=== PATIENT | female | born 1985 | race Caucasian/White ===

== ENCOUNTER 2024-10-16 19:41 | Emergency (ER) | payer OTHER ==
--- NOTE | 2024-10-16 20:27 | RAD REPORT ---
Procedure: Chest Single View HISTORY: Chest pain COMPARISON: none FINDINGS: The lungs appear clear of acute infiltrate. No significant pleural effusion noted. The heart is normal size. IMPRESSION: No acute abnormality is displayed.
[2024-10-16 20:36] LABS: Absolute Eosinophils 0.1 K/uL (0-0.5); Absolute Monocytes 0.3 K/uL (0.1-1.3); Absolute Neutrophil 3.6 K/uL (1.8-8.0); Basophils % 0.7 % (0-1.3); Eosinophils % 1.3 % (0-4.4); Hematocrit 35.5 % (36.0-45.0); Hemoglobin 12.1 g/dL (12.0-15.0); Lymphocytes % 33.1 % (15.3-44.8); MCH 31.3 pg (27.0-35.0); MCHC 34.3 g/dL (32.0-36.0); MCV 91.4 fL (80-100); MPV 8.3 fL (7.6-11.3); Monocytes % 4.7 % (3.3-12.3); Neutrophils % 60.2 % (41.7-73.7); Nucleated Red Blood Cells % 0.5 % (0-0); Platelets 259 thou/uL (152-406); RBC Red Blood Cell Count 3.88 M/uL (3.86-4.86); Red Cell Distribution Width 13.3 % (12.1-15.2)
[2024-10-16 20:42] LABS: PT Prothrombin Time 12.2 SECONDS (10.0-13.0); Protime INR 1.07
[2024-10-16 20:56] LABS: ALT/SGPT 28 U/L (13-56); AST/SGOT 13 U/L (15-37); Albumin 3.1 g/dL (3.4-5.0); Alkaline Phosphatase 54 U/L (45-117); Anion Gap 7.7 mEq/L (5.0-15.0); BUN Blood Urea Nitrogen 11 mg/dL (7-18); Bicarbonate 26 mEq/L (21-32); Bilirubin Total 0.2 mg/dL (0.2-1.0); Globulin 3.1 g/dL (2.3-3.5); Glomerular Filtration Rate 121 ml/min (=/>90); Glucose Level 99 mg/dL (74-106); NT PRO-BNP 149 pg/mL (<125); Potassium 3.7 mEq/L (3.5-5.1); Protein, Total 6.2 g/dL (6.4-8.2); Sodium Level 139 mEq/L (136-145); Troponin High Sensitivity 4.9 pg/mL (<58.9)
[2024-10-16 21:03] LABS: Bilirubin Direct < 0.2 mg/dL (0-0.2)
--- NOTE | 2024-10-16 21:08 | ER ---
Nurse's Notes [facility] Name: Brandi Patel Age: 38 yrs Sex: Female : 1985 Arrival Date: 10/16/2024 Time: 19:41 Bed DX1 Private MD: Diagnosis: Chest pain, hypertension Presentation: 10/16 19:47 Chief complaint: Patient states: chest pain X 1 and half weeks , today it started 2-3 iw hours ago , pain is right in middle , non radiating , feels like pressure and feels like anxiety. Coronavirus screen: At this time, the client does not indicate any symptoms associated with coronavirus-19. Ebola Screen: No symptoms or risks identified at this time. Initial Sepsis Screen: Does the patient meet any 2 criteria? No. Patient's initial sepsis screen is negative. Does the patient have a suspected source of infection? No. Patient's initial sepsis screen is negative. Risk Assessment: Do you want to hurt yourself or someone else? Patient reports no desire to harm self or others. Onset of symptoms was October 06, 2024. 19:47 Method Of Arrival: Ambulatory iw 19:47 Acuity: CECILIO 3 iw Historical: - Allergies: 19:48 No Known Allergies; iw - Home Meds: 19:48 metoprolol tartrate 100 mg Oral tablet daily [Active]; iw - PMHx: 19:48 Hypertensive disorder; Anxiety; iw - PSHx: 19:48 section; x3; Ligation of fallopian tube; iw - Immunization history:: Adult Immunizations up to date. - Infectious Disease History:: Denies. - Social history:: Smoking status: Patient denies any tobacco usage or history of. Patient/guardian denies using alcohol, street drugs. Screenin:27 [facility] ED Fall Risk Assessment (Adult) History of falling in the last 3 months, lg3 including since admission No falls in past 3 months (0 pts) Confusion or Disorientation No (0 pts) Intoxicated or Sedated No (0 pts) Impaired Gait No (0 pts) Mobility Assist Device Used No (0 pt) Altered Elimination No (0 pt) Score/Fall Risk Level 0 - 2 = Low Risk Oriented to surroundings, Maintained a safe environment, Educated pt \T\ family on fall prevention, incl call for assistance when getting out of bed, Assessed \T\ reinforced patient's understanding of fall precautions. Abuse screen: Denies threats or abuse. Denies injuries from another. Nutritional screening: No deficits noted. Tuberculosis screening: No symptoms or risk factors identified. Assessment: 20:27 General: Appears in no apparent distress. comfortable, Behavior is calm, cooperative. lg3 Pain: Complains of pain in chest Pain does not radiate. Pain currently is 3 out of 10 on a pain scale. Quality of pain is described as pressure. Neuro: No deficits noted. Weiss Agitation-Sedation Scale (RASS): 0 - Alert and Calm Level of Consciousness is awake, alert, obeys commands, Oriented to person, place, time, situation. Cardiovascular: No deficits noted. Heart tones S1 S2 present Capillary refill < 3 seconds Clubbing of nail beds is absent JVD is absent Patient's skin is warm and dry. Rhythm is sinus rhythm. Respiratory: No deficits noted. Airway is patent Respiratory effort is even, unlabored, Respiratory pattern is regular, symmetrical. GI: No deficits noted. No signs and/or symptoms were reported involving the gastrointestinal system. : No signs and/or symptoms were reported regarding the genitourinary system. EENT: No deficits noted. No signs and/or symptoms were reported regarding the EENT system. Derm: No deficits noted. No signs and/or symptoms reported regarding the dermatologic system. Skin is intact, is healthy with good turgor, Skin is dry, Skin is normal, Skin temperature is warm. Musculoskeletal: No deficits noted. No signs and/or symptoms reported regarding the musculoskeletal system. Circulation, motion, and sensation intact. Range of motion: intact in all extremities. 21:14 Reassessment: Patient appears in no apparent distress at this time. No changes from lg3 previously documented assessment. Patient and/or family updated on plan of care and expected duration. Pain level reassessed. Patient is alert, oriented x 3, equal unlabored respirations, skin warm/dry/pink. Vital Signs: 19:47 BP 142 / 101; Pulse 67; Resp 16; Temp 97.6; Pulse Ox 100% on R/A; Weight 90.72 kg; iw Height 5 ft. 5 in. ; 21:15 BP 134 / 92; Pulse 76; Resp 17 S; Temp 97.3(O); Pulse Ox 100% on R/A; lg3 19:47 Body Mass Index 33.28 (90.72 kg, 165.1 cm) iw ED Course: 19:47 Patient arrived in ED. iw 19:47 Ailyn Adams MD is Attending Physician. sp3 19:48 Triage completed. iw 19:49 Arm band placed on. iw 20:08 EKG done, by ED staff, reviewed by Ailyn Adams MD. iw 20:17 XRAY Chest (1 view) In Process Unspecified. EDMS 20:26 Initial lab(s) drawn, by me, sent to lab. Inserted saline lock: 22 gauge in right lg3 antecubital area, using aseptic technique. Blood collected. Flushed with 10 mL NS. 20:27 Patient has correct armband on for positive identification. Warm blanket given. lg3 20:27 Patient maintains SpO2 saturation greater than 95% on room air. lg3 20:29 Basic Metabolic Panel Sent. lg3 20:29 CBC with Diff Sent. lg3 20:29 LFT's Sent. lg3 20:29 Magnesium Sent. lg3 20:29 NT PRO-BNP Sent. lg3 20:29 PT-INR Sent. lg3 20:29 Troponin HS Sent. lg3 21:15 No provider procedures requiring assistance completed. IV discontinued, intact, lg3 bleeding controlled, No redness/swelling at site. Pressure dressing applied. Administered Medications: No medications were administered Medication: 20:27 VIS not applicable for this client. lg3 Outcome: 21:08 Discharge ordered by . sp3 21:15 Discharged to home ambulatory, lg3 21:15 Condition: stable 21:15 Discharge instructions given to patient, Instructed on discharge instructions, follow up and referral plans. Demonstrated understanding of instructions, follow-up care, 21:16 Patient left the ED. lg3 Signatures: Dispatcher [employer] EDMS Ronel Rhodes, RN RN iw Audrey Ram RN RN lg3 Ailyn Adams MD MD sp3 Corrections: (The following items were deleted from the chart) 19:49 19:47 BP 142 / 101; Pulse 67bpm; Resp 16bpm; Pulse Ox 100% RA; Temp 97.6F; iw iw
--- NOTE | 2024-10-16 21:08 | EDPHYS ---
Physician Documentation [facility] Name: Brandi Patel Age: 38 yrs Sex: Female : 1985 Arrival Date: 10/16/2024 Time: 19:41 Bed DX1 Private MD: ED Physician Ailyn Adams HPI: 10/16 20:37 This 38 yrs old Female presents to ER via Ambulatory with complaints of High Blood sp3 Pressure, Chest Pain. 20:37 38-year-old female with history of hypertension, anxiety presents to the ED with chief sp3 complaint chest pain off and on for the last 3 to 4 hours. She also states she has not been compliant with her blood pressure medication. She really only wanted an EKG and blood pressure performed however she did mention chest pain. She denies any headache, shortness of breath, back pain, abdominal pain, vomit, diarrhea, syncope, near syncope, rash, bleeding, or any other signs or symptoms on ROS at this time. Chest pain is currently resolved. She does feel anxious.. Historical: - Allergies: 19:48 No Known Allergies; iw - Home Meds: 19:48 metoprolol tartrate 100 mg Oral tablet daily [Active]; iw - PMHx: 19:48 Hypertensive disorder; Anxiety; iw - PSHx: 19:48 section; x3; Ligation of fallopian tube; iw - Immunization history:: Adult Immunizations up to date. - Infectious Disease History:: Denies. - Social history:: Smoking status: Patient denies any tobacco usage or history of. Patient/guardian denies using alcohol, street drugs. ROS: 20:38 Constitutional: Negative for fever, chills, and weight loss, Eyes: Negative for injury, sp3 pain, redness, and discharge, ENT: Negative for injury, pain, and discharge, Neck: Negative for injury, pain, and swelling, Respiratory: Negative for shortness of breath, cough, wheezing, and pleuritic chest pain, Abdomen/GI: Negative for abdominal pain, nausea, vomiting, diarrhea, and constipation, Back: Negative for injury and pain, MS/Extremity: Negative for injury and deformity, Skin: Negative for injury, rash, and discoloration, Neuro: Negative for headache, weakness, numbness, tingling, and seizure, Psych: Negative for depression, anxiety, suicide ideation, homicidal ideation, and hallucinations, Allergy/Immunology: Negative for hives, rash, and allergies, Endocrine: Negative for neck swelling, polydipsia, polyuria, polyphagia, and marked weight changes, Hematologic/Lymphatic: Negative for swollen nodes, abnormal bleeding, and unusual bruising, 20:38 All other systems are negative, Exam: 20:38 Constitutional: This is a well developed, well nourished patient who is awake, alert, sp3 and in no acute distress. Head/Face: Normocephalic, atraumatic. Eyes: Pupils equal round and reactive to light, extra-ocular motions intact. Lids and lashes normal. Conjunctiva and sclera are non-icteric and not injected. Cornea within normal limits. Periorbital areas with no swelling, redness, or edema. Neck: Trachea midline, no thyromegaly or masses palpated, and no cervical lymphadenopathy. Supple, full range of motion without nuchal rigidity, or vertebral point tenderness. No Meningismus. Chest/axilla: Normal chest wall appearance and motion. Nontender with no deformity. No lesions are appreciated. Cardiovascular: Regular rate and rhythm with a normal S1 and S2. No gallops, murmurs, or rubs. Normal PMI, no JVD. No pulse deficits. Respiratory: Lungs have equal breath sounds bilaterally, clear to auscultation and percussion. No rales, rhonchi or wheezes noted. No increased work of breathing, no retractions or nasal flaring. Abdomen/GI: Soft, non-tender, with normal bowel sounds. No distension or tympany. No guarding or rebound. No evidence of tenderness throughout. Back: No spinal tenderness. No costovertebral tenderness. Full range of motion. Skin: Warm, dry with normal turgor. Normal color with no rashes, no lesions, and no evidence of cellulitis. MS/ Extremity: Pulses equal, no cyanosis. Neurovascular intact. Full, normal range of motion. Neuro: Awake and alert, GCS 15, oriented to person, place, time, and situation. Cranial nerves II-XII grossly intact. Motor strength 5/5 in all extremities. Sensory grossly intact. Cerebellar exam normal. Normal gait. Psych: Awake, alert, with orientation to person, place and time. Behavior, mood, and affect are within normal limits. 20:38 ECG was reviewed by the Attending Physician. EKG demonstrates normal sinus rhythm at 62 bpm with normal intervals, normal QRS, normal axis, normal ST/T-segment's without evidence of acute ischemia. Vital Signs: 19:47 BP 142 / 101; Pulse 67; Resp 16; Temp 97.6; Pulse Ox 100% on R/A; Weight 90.72 kg; iw Height 5 ft. 5 in. ; 21:15 BP 134 / 92; Pulse 76; Resp 17 S; Temp 97.3(O); Pulse Ox 100% on R/A; lg3 19:47 Body Mass Index 33.28 (90.72 kg, 165.1 cm) iw MDM: 19:55 Medical Screening Exam initiated sp3 20:38 Data reviewed: vital signs, nurses notes, lab test result(s), EKG, radiologic studies. sp3 ED course: 38-year-old female with hypertension and now resolved chest pain. I have convinced the patient to get at least 1 set of blood work prior to being discharged. She is in a hurry to get home due to her employment. Differential diagnosis includes muscle skeletal pain, anxiety, acute coronary syndrome, pleurisy, other pulmonary pathology, among others. I am not highly suspicious of PE, TAD, sepsis, shock and I ruled all of those out clinically. EKG is normal. Chest x-ray is also normal. Blood work pending. If negative I will offer 1 more set of blood work at 2 hours for second troponin however patient will likely decline due to her wanting to leave. Will perform informed discharge and discharge accordingly.. 21:08 ED course: Initial workup negative. Patient still wants to be discharged. We will sp3 safely let her go home at this time.. 10/16 20:00 Order name: Basic Metabolic Panel; Complete Time: 21:07 3 10/16 20:00 Order name: CBC with Diff; Complete Time: 21: 3 10/16 20:00 Order name: LFT's; Complete Time: 21:07 3 10/16 20:00 Order name: Magnesium; Complete Time: 21: 3 10/16 20:00 Order name: NT PRO-BNP; Complete Time: 21:07 3 10/16 20:00 Order name: PT-INR; Complete Time: 21: 3 10/16 20:00 Order name: Troponin HS; Complete Time: 21:07 sp3 10/16 20:00 Order name: XRAY Chest (1 view); Complete Time: 20:32 sp3 10/16 20:00 Order name: EKG; Complete Time: 20:00 sp3 10/16 20:00 Order name: EKG - Nurse/Tech; Complete Time: 20:05 sp3 10/16 20:00 Order name: IV Saline Lock; Complete Time: 20:29 sp3 10/16 20:00 Order name: Labs collected and sent; Complete Time: 20:29 sp3 10/16 20:00 Order name: O2 Per Protocol; Complete Time: 20:08 sp3 10/16 20:00 Order name: O2 Sat Monitoring; Complete Time: 20:08 sp3 Administered Medications: No medications were administered Disposition Summary: 10/16/24 21:08 Discharge Ordered Notes: Location: Home sp3 Condition: Stable sp3 Diagnosis - Chest pain, hypertension sp3 Followup: sp3 - With: Private Physician - When: Upon discharge from the Emergency Department - Reason: Continuance of care Discharge Instructions: - Discharge Summary Sheet sp3 - Nonspecific Chest Pain, Adult sp3 Forms: - Medication Reconciliation Form sp3 - Antibiotic Education sp3 - Prescription Opioid Use sp3 - Patient Portal Instructions sp3 - Leadership Thank You Letter sp3 Signatures: Dispatcher [employer] Ronel Mckee, RN JONELLE iw Audrey Ram RN RN lg3 Ailyn Adams MD MD sp3 Corrections: (The following items were deleted from the chart) 20:00 20:00 Chest Single View+[email or web address] ordered. SHRUTI BAHENA
[2024-10-16 21:39] VITALS: O2SAT 100
[2024-10-16 21:41] VITALS: BP 134/92; TEMP 97.3
--- NOTE | 2024-10-17 11:56 | EKG ---
Test Date: 2024-10-16 Test Time: 19:55:00 Beading Machine Operator: JACOB MEASUREMENT RESULTS: Intervals: Rate: 62 IN: 164 QRSD: 76 QT: 402 QTc: 408 [place]: P: 43 IN: 164 QRS: 41 T: 42 INTERPRETIVE STATEMENTS: Normal sinus rhythm Normal ECG No previous ECG available for comparison Electronically Signed On 10-17-24 11:56:19 INTEGRATED MARKETING MANAGER by Talat Jefferson
== END 2024-10-16 21:16 | disposition home or self-care (01) ==
LOC: ER 19:41
DX: R07.9 Chest pain, unspecified (principal); I10 Essential (primary) hypertension; F41.9 Anxiety disorder, unspecified
CPT/HCPCS: 36415; 71045; 80048; 80076; 83735; 83880; 84484; 85025; 85610; 93005; 99284